=== PATIENT | female | born 2000 ===

== ENCOUNTER 2019-06-08 16:18 | Inpatient (IN) ==
[2019-06-08] MEDS ORDERED: DINOPROSTONE VAG GEL 10 MG SYRINGE VAG ONE (16:53)
[2019-06-08] MEDS ORDERED: ONDANSETRON 4 MG/2 ML VIAL IV PRN (17:29)
[2019-06-08] MEDS ORDERED: MEPERIDINE 50 MG/1 ML VIAL IM PRN (17:29)
[2019-06-08] MEDS ORDERED: BUTORPHANOL 2 MG/ML VIAL IV PRN (17:29)
[2019-06-08] MEDS ORDERED: LACTATED RINGERS 1,000 ML IV SCH (17:30)
[2019-06-08 17:59] LABS: Basophils % 0.2 % (0.0-0.8); Eosinophils # 0.1 10*3/uL (0.0-0.87); Hematocrit 37.5 VOL% (35.7-47.0); Hemoglobin 12.3 GM/DL (12.0-16.0); Immature Granulocytes % 0.8 %; Immature Granulocytes Absolute 0.07 #; Lymphocytes # 1.1 10*3/uL (1.4-4.0); Lymphocytes % 13.2 % (21.3-54.2); Mean Corpuscular HGB Conc 32.8 GM/DL (32-36); Mean Corpuscular Volume 94.7 FL (87-102); Mean Platelet Volume 13.3 FL (9.6-12.0); Monocytes % 7.4 % (1.7-12.7); Neutrophils % 77.4 % (38.7-73.9); Platelet Count 164 T/CUMM (130-400); Red Blood Count 3.96 MC/CUMM (3.8-5.5); White Blood Count 8.4 T/CUMM (4-12)
[2019-06-09] MEDS ORDERED: OXYTOCIN/LR 20 UNIT/1,000 ML BAG IV SCH (01:00)
[2019-06-09] MEDS ORDERED: DINOPROSTONE VAG GEL 10 MG SYRINGE VAG ONE ×2 (08:45→08:52)
[2019-06-09] MEDS ORDERED: ceFAZolin 2,000 MG in PREMIX 1 EACH IV ONE (15:36)
[2019-06-09] MEDS ORDERED: CITRIC ACID/SODIUM CITRATE 30 ML UDCUP PO ONE (15:36)
[2019-06-09] MEDS ORDERED: FAMOTIDINE 20 MG/2 ML VIAL IV ONE (15:36)
[2019-06-09] MEDS ORDERED: OXYTOCIN 10 UNIT/ML VIAL IM ONE (16:16)
[2019-06-09] MEDS ORDERED: OXYTOCIN/LR 30 UNIT/1,000 ML BAG IV ONE (16:16)
[2019-06-09] MEDS ORDERED: MORPHINE 10 MG/10 ML VIAL ONE (17:00)
[2019-06-09] MEDS ORDERED: PHENYLEPHRINE 1 MG/10 ML SYRINGE IV ONE (17:00)
[2019-06-09] MEDS ORDERED: BUPIVACAINE SPINAL 0.75% 2 ML AMP SPINAL ONE (17:00)
[2019-06-09] MEDS ORDERED: fentaNYL 100 MCG/2 ML VIAL ONE (17:00)
[2019-06-09] MEDS ORDERED: KETOROLAC 60 MG/2 ML VIAL IM ONE (17:01)
[2019-06-09] MEDS ORDERED: MAGNESIUM HYDROXIDE SUSP 30 ML UDCUP PO PRN (17:59)
[2019-06-09] MEDS ORDERED: ONDANSETRON 4 MG/2 ML VIAL IV PRN (17:59)
[2019-06-09] MEDS ORDERED: ACETAMINOPHEN 325 MG TABLET PO PRN (17:59)
[2019-06-09] MEDS ORDERED: OXYTOCIN/LR 20 UNIT/1,000 ML BAG IV ONE (17:59)
[2019-06-09] MEDS ORDERED: IBUPROFEN 800 MG TABLET PO PRN (17:59)
[2019-06-09] MEDS ORDERED: RHO(D) IMMUNE GLOBULIN 300 MCG SYRINGE IM ONE (17:59)
[2019-06-09] MEDS ORDERED: LACTATED RINGERS 1,000 ML IV SCH (18:00)
[2019-06-09 18:09] LABS: Cord Arterial Blood HCO3 20.6 MMOL/L
[2019-06-09 18:11] LABS: Cord Venous Blood HCO3 22.1 MMOL/L; Cord Venous Blood PCO2 43.3 MMHG; Cord Venous Blood PO2 33.4
[2019-06-09 18:30] LABS: Apearance,Urine CLEAR (Clear); Bacteria,Urine Occasional /HPF (Few); Bilirubin,Urine Negative (Negative); Blood, Urine Negative (Negative); Glucose,Urine (UA) Negative (Negative); Hyaline Casts,Urine 1 /LPF (0-3); Ketones,Urine 20 mg/dL (Negative); Mucus,Urine Occasional /LPF (Occasional); Nitrite,Urine Negative (Negative); Protein,Urine Negative; RBC,Urine <1 /HPF (0-4); Urine Color Yellow (Yellow); Urine Urobilinogen < 2.0 EU/DL (0.2-1.0); WBC,Urine <1 /HPF (0-6)
[2019-06-09] MEDS ORDERED: hydrOXYzine HCL 25 MG/1 ML VIAL IM PRN (22:44)
[2019-06-09] MEDS ORDERED: HYDROmorphone 2 MG/1 ML VIAL IV PRN (22:44)
[2019-06-09] MEDS ORDERED: diphenhydrAMINE 50 MG/1 ML VIAL IV PRN (22:44)
[2019-06-09] MEDS: DOCUSATE SODIUM 100 MG CAPSULE PO SCH (23:05)
[2019-06-09] MEDS: KETOROLAC 30 MG/1 ML VIAL IV SCH (23:24)
[2019-06-10] MEDS: ceFAZolin 1,000 MG in SYRINGE 1 EACH IV SCH ×2 (02:06→10:40)
[2019-06-10 02:08] LABS: Basophils % 0.2 % (0.0-0.8); Eosinophils % 0.2 % (0.00-10.9); Hematocrit 33.4 VOL% (35.7-47.0); Hemoglobin 10.9 GM/DL (12.0-16.0); Immature Granulocytes % 0.6 %; Immature Granulocytes Absolute 0.08 #; Lymphocytes # 0.9 10*3/uL (1.4-4.0); Lymphocytes % 7.1 % (21.3-54.2); Mean Corpuscular HGB Conc 32.6 GM/DL (32-36); Mean Corpuscular Volume 94.4 FL (87-102); Mean Platelet Volume 12.7 FL (9.6-12.0); Monocytes % 6.7 % (1.7-12.7); Neutrophils % 85.2 % (38.7-73.9); Platelet Count 130 T/CUMM (130-400); Red Blood Count 3.54 MC/CUMM (3.8-5.5); Red Cell Distribution Width 14.7 % (9.3-17.3); White Blood Count 12.8 T/CUMM (4-12)
[2019-06-10] MEDS: KETOROLAC 30 MG/1 ML VIAL IV SCH ×2 (05:17→12:00)
[2019-06-10 09:44] LABS: Basophils % 0.2 % (0.0-0.8); Eosinophils # 0.1 10*3/uL (0.0-0.87); Eosinophils % 0.6 % (0.00-10.9); Hematocrit 31.4 VOL% (35.7-47.0); Hemoglobin 10.5 GM/DL (12.0-16.0); Immature Granulocytes % 0.7 %; Immature Granulocytes Absolute 0.07 #; Lymphocytes # 1.1 10*3/uL (1.4-4.0); Lymphocytes % 11.2 % (21.3-54.2); Mean Corpuscular HGB Conc 33.4 GM/DL (32-36); Mean Corpuscular Volume 93.2 FL (87-102); Mean Platelet Volume 13.2 FL (9.6-12.0); Monocytes % 8.8 % (1.7-12.7); Neutrophils % 78.5 % (38.7-73.9); Platelet Count 128 T/CUMM (130-400); Red Blood Count 3.37 MC/CUMM (3.8-5.5); Red Cell Distribution Width 14.8 % (9.3-17.3); White Blood Count 9.4 T/CUMM (4-12)
[2019-06-10] MEDS: MULTIVITAMIN (PRENATAL) TABLET PO SCH (10:00)
[2019-06-10] MEDS: METOCLOPRAMIDE 10 MG TABLET PO SCH ×3 (10:00→23:34)
[2019-06-10] MEDS: MAGNESIUM HYDROXIDE SUSP 30 ML UDCUP PO SCH (10:43)
[2019-06-10] MEDS: DOCUSATE SODIUM 100 MG CAPSULE PO SCH ×2 (10:43→21:09)
[2019-06-10] MEDS: SIMETHICONE CHEW 80 MG TABLET PO PRN (10:44)
[2019-06-11 07:17] VITALS: BP 124/70
[2019-06-11] MEDS: MULTIVITAMIN (PRENATAL) TABLET PO SCH (08:10)
[2019-06-11] MEDS: MAGNESIUM HYDROXIDE SUSP 30 ML UDCUP PO SCH (08:10)
[2019-06-11] MEDS: DOCUSATE SODIUM 100 MG CAPSULE PO SCH (08:10)
[2019-06-11] MEDS: METOCLOPRAMIDE 10 MG TABLET PO SCH (08:10)
[2019-06-11] MEDS: SIMETHICONE CHEW 80 MG TABLET PO PRN (08:10)
== END 2019-06-11 12:50 | disposition home or self-care (01) | DRG 540 ==
LOC: N.LDOUT 16:18 → N.LD 16:22 → N.OB 06-09 21:42
PROVIDERS: ADMIT Obstetrics & Gynecology; ATTEND Obstetrics & Gynecology
PROC: LDCSECT (ICD-10-PCS; 2019-06-09 17:00)

== ENCOUNTER 2020-08-10 10:25 | Inpatient (IN) ==
[2020-08-10] MEDS ORDERED: FAMOTIDINE 20 MG/2 ML VIAL IV ONE (10:49)
[2020-08-10] MEDS ORDERED: CITRIC ACID/SODIUM CITRATE 30 ML UDCUP PO ONE (10:49)
[2020-08-10] MEDS ORDERED: ceFAZolin 2,000 MG in PREMIX 1 EACH IV ONE (10:49)
[2020-08-10] MEDS ORDERED: LACTATED RINGERS 1,000 ML IV SCH ×2 (11:00→17:30)
[2020-08-10 11:10] LABS: Basophils % 0.3 % (0.0-0.8); Eosinophils # 0.1 10*3/uL (0.0-0.87); Eosinophils % 0.8 % (0.00-10.9); Hematocrit 32.4 VOL% (35.7-47.0); Hemoglobin 10.3 GM/DL (12.0-16.0); Immature Granulocytes Absolute 0.07 #; Lymphocytes # 1.5 10*3/uL (1.4-4.0); Lymphocytes % 20.5 % (21.3-54.2); Mean Corpuscular HGB Conc 31.8 GM/DL (32-36); Mean Corpuscular Volume 85.7 FL (87-102); Mean Platelet Volume 12.7 FL (9.6-12.0); Monocytes % 8.2 % (1.7-12.7); Neutrophils % 69.2 % (38.7-73.9); Platelet Count 189 T/CUMM (130-400); Red Blood Count 3.78 MC/CUMM (3.8-5.5); Red Cell Distribution Width 14.5 % (9.3-17.3); White Blood Count 7.3 T/CUMM (4-12)
[2020-08-10 11:29] LABS: Alanine Aminotransferase 23 U/L (13-56); Albumin 2.7 G/DL (3.4-5.0); Alkaline Phosphatase 199 U/L (45-117); Aspartate Amino Transferase 25 U/L (0-37); Bilirubin,Total < 0.39 MG/DL (0.2-1.0); Blood Urea Nitrogen 7 MG/DL (7-18); Calcium 8.3 MG/DL (8.5-10.1); Carbon Dioxide 19 MMOL/L (21-32); Estimated Glom Filtration Rate 152 ML/MIN; Glucose 94 MG/DL (74-106); Osmolality,Calculated 272.7 MOS/KG (273-304); Potassium 3.9 MMOL/L (3.5-5.1); Sodium 138 MMOL/L (136-145); Total Protein 7.1 G/DL (6.4-8.2)
[2020-08-10] MEDS ORDERED: OXYTOCIN/LR 20 UNIT/1,000 ML BAG IV ONE ×2 (11:51→17:08)
[2020-08-10] MEDS ORDERED: miSOPROStoL 200 MCG TABLET ONE (11:51)
[2020-08-10] MEDS ORDERED: TRANEXAMIC ACID 1,000 MG/10 ML VIAL ONE (11:51)
[2020-08-10] MEDS ORDERED: CARBOPROST TROMETHAMINE 250 MCG/ML AMP IM ONE (11:52)
[2020-08-10] MEDS ORDERED: METHYLERGONOVINE 0.2 MG/1 ML AMP ONE (11:52)
[2020-08-10] MEDS ORDERED: OXYTOCIN/LR 30 UNIT/1,000 ML BAG IV ONE (12:30)
[2020-08-10] MEDS ORDERED: OXYTOCIN 10 UNIT/ML VIAL IM ONE (12:30)
[2020-08-10] MEDS ORDERED: PHENYLEPHRINE 1 MG/10 ML SYRINGE IV ONE (13:40)
[2020-08-10] MEDS ORDERED: BUPIVACAINE SPINAL 0.75% 2 ML AMP SPINAL ONE (13:40)
[2020-08-10] MEDS ORDERED: ONDANSETRON 4 MG/2 ML VIAL ONE (13:40)
[2020-08-10 16:36] LABS: Cord Venous Blood HCO3 20.4 MMOL/L; Cord Venous Blood PCO2 41.6 MMHG; Cord Venous Blood PO2 37.6
[2020-08-10 16:40] LABS: Bacteria,Urine Occasional /HPF (Few); Bilirubin,Urine Negative (Negative); Blood, Urine Negative (Negative); Glucose,Urine (UA) Negative (Negative); Ketones,Urine Negative (Negative); Mucus,Urine Many /LPF (Occasional); Nitrite,Urine Negative (Negative); Protein,Urine 30 MG/DL; Squamous Epithelial Cell,Urine Occasional /HPF (0-10); Urine Appearance CLEAR (Clear); Urine Color Yellow (Yellow); Urine Specific Gravity 1.025 (1.001-1.035)
[2020-08-10] MEDS ORDERED: IBUPROFEN 800 MG TABLET PO PRN (17:08)
[2020-08-10] MEDS ORDERED: RHO(D) IMMUNE GLOBULIN 300 MCG SYRINGE IM ONE (17:08)
[2020-08-10] MEDS ORDERED: ACETAMINOPHEN 325 MG TABLET PO PRN (17:08)
[2020-08-10] MEDS ORDERED: SIMETHICONE CHEW 80 MG TABLET PO PRN (17:08)
[2020-08-10] MEDS ORDERED: ONDANSETRON 4 MG/2 ML VIAL IV PRN (17:08)
[2020-08-10] MEDS: DOCUSATE SODIUM 100 MG CAPSULE PO SCH (20:42)
[2020-08-11] MEDS: ceFAZolin 1,000 MG in SYRINGE 1 EACH IV SCH ×2 (01:47→08:45)
[2020-08-11] MEDS ORDERED: OXYTOCIN/LR 20 UNIT/1,000 ML BAG IV ONE (02:00)
[2020-08-11 05:31] LABS: Basophils % 0.2 % (0.0-0.8); Eosinophils # 0.1 10*3/uL (0.0-0.87); Eosinophils % 0.6 % (0.00-10.9); Hematocrit 26.2 VOL% (35.7-47.0); Immature Granulocytes % 0.6 %; Immature Granulocytes Absolute 0.05 #; Lymphocytes # 1.2 10*3/uL (1.4-4.0); Lymphocytes % 14.3 % (21.3-54.2); Mean Corpuscular HGB Conc 31.7 GM/DL (32-36); Mean Corpuscular Volume 86.2 FL (87-102); Mean Platelet Volume 12.8 FL (9.6-12.0); Monocytes % 5.6 % (1.7-12.7); Neutrophils % 78.7 % (38.7-73.9); Platelet Count 154 T/CUMM (130-400); Red Blood Count 3.04 MC/CUMM (3.8-5.5); Red Cell Distribution Width 14.4 % (9.3-17.3); White Blood Count 8.4 T/CUMM (4-12)
[2020-08-11 05:34] LABS: Hemoglobin 8.3 GM/DL (12.0-16.0)
[2020-08-11 06:26] LABS: Hypochromasia Slight; Platelet Estimate Normal
[2020-08-11] MEDS: DOCUSATE SODIUM 100 MG CAPSULE PO SCH ×2 (08:35→20:26)
[2020-08-11] MEDS: MAGNESIUM HYDROXIDE SUSP 30 ML UDCUP PO PRN ×2 (08:35→20:26)
[2020-08-11] MEDS: FERROUS SULFATE 325 MG TABLET PO SCH ×2 (08:35→20:26)
[2020-08-11] MEDS: MULTIVITAMIN (PRENATAL) TABLET PO SCH (08:35)
[2020-08-11] MEDS: METOCLOPRAMIDE 10 MG TABLET PO SCH ×3 (08:44→23:40)
[2020-08-12] MEDS: MULTIVITAMIN (PRENATAL) TABLET PO SCH ×2 (08:52→08:53)
[2020-08-12] MEDS: DOCUSATE SODIUM 100 MG CAPSULE PO SCH (08:53)
[2020-08-12] MEDS: FERROUS SULFATE 325 MG TABLET PO SCH (08:53)
[2020-08-12 11:15] VITALS: BP 132/72
== END 2020-08-12 12:25 | disposition home or self-care (01) | DRG 540 ==
LOC: N.LD 10:25 → N.OB 21:30
PROVIDERS: ADMIT Obstetrics & Gynecology; ATTEND Obstetrics & Gynecology
PROC: LDCSECT (ICD-10-PCS; 2020-08-10 13:15)

== ENCOUNTER 2022-04-24 10:15 | Inpatient (IN) ==
[2022-04-24] MEDS ORDERED: TRANEXAMIC ACID 1,000 MG in SODIUM CHLORIDE 0.9% 100 ML IV PRN (10:25)
[2022-04-24] MEDS ORDERED: ceFAZolin 2,000 MG/50 ML DUPLEX IV ONE (10:25)
[2022-04-24] MEDS ORDERED: OXYTOCIN/LR 20 UNIT/1,000 ML BAG IV ONE ×2 (10:25→14:54)
[2022-04-24] MEDS ORDERED: FAMOTIDINE 20 MG/2 ML VIAL IV ONE (10:25)
[2022-04-24] MEDS ORDERED: METHYLERGONOVINE 0.2 MG/1 ML AMP IM PRN (10:25)
[2022-04-24] MEDS ORDERED: CARBOPROST TROMETHAMINE 250 MCG/ML AMP IM PRN (10:25)
[2022-04-24] MEDS ORDERED: miSOPROStoL 200 MCG TABLET RECTAL PRN (10:25)
[2022-04-24] MEDS ORDERED: CITRIC ACID/SODIUM CITRATE 30 ML UDCUP PO ONE (10:25)
[2022-04-24] MEDS ORDERED: LACTATED RINGERS 1,000 ML IV SCH ×2 (10:30→15:00)
[2022-04-24 11:03] LABS: Basophils % 0.4 % (0.0-0.8); Eosinophils # 0.1 10*3/uL (0.0-0.87); Eosinophils % 1.1 % (0.00-10.9); Hematocrit 34.6 VOL% (35.7-47.0); Hemoglobin 11.3 GM/DL (12.0-16.0); Immature Granulocytes % 0.7 %; Immature Granulocytes Absolute 0.05 #; Lymphocytes # 1.6 10*3/uL (1.4-4.0); Lymphocytes % 22.3 % (21.3-54.2); Mean Corpuscular HGB Conc 32.7 GM/DL (32-36); Mean Corpuscular Volume 86.1 FL (87-102); Mean Platelet Volume 13.4 FL (9.6-12.0); Monocytes # 0.5 10*3/uL (0.11-0.8); Monocytes % 6.7 % (1.7-12.7); Neutrophils % 68.8 % (38.7-73.9); Platelet Count 191 T/CUMM (130-400); Red Blood Count 4.02 MC/CUMM (3.8-5.5); Red Cell Distribution Width 15.7 % (9.3-17.3)
[2022-04-24 11:31] LABS: Alanine Aminotransferase 22 U/L (13-56); Albumin 2.5 G/DL (3.4-5.0); Alkaline Phosphatase 265 U/L (45-117); Aspartate Amino Transferase 15 U/L (0-37); Bilirubin,Total < 0.39 MG/DL (0.20-1.00); Blood Urea Nitrogen 6 MG/DL (7-18); Calcium 8.6 MG/DL (8.5-10.1); Carbon Dioxide 18 MMOL/L (21-32); Chloride 113 MMOL/L (98-107); Glucose 103 MG/DL (74-106); Osmolality,Calculated 276.4 MOS/KG (273-304); Potassium 3.9 MMOL/L (3.5-5.1); Sodium 140 MMOL/L (136-145); Total Protein 7.1 G/DL (6.4-8.2)
[2022-04-24] MEDS ORDERED: OXYTOCIN 10 UNIT/ML VIAL IM ONE (13:00)
[2022-04-24] MEDS ORDERED: OXYTOCIN/LR 30 UNIT/1,000 ML BAG IV ONE ×2 (13:00→14:48)
[2022-04-24] MEDS ORDERED: buprenorphine HCL 0.3 MG/ML VIAL ONE (13:18)
[2022-04-24] MEDS ORDERED: ONDANSETRON 4 MG/2 ML VIAL ONE (13:18)
[2022-04-24 14:21] LABS: Cord Arterial Blood HCO3 16.8 MMOL/L
[2022-04-24 14:23] LABS: Bilirubin,Urine Negative (Negative); Blood, Urine Trace mg/dL (Negative); Glucose,Urine (UA) Negative (Negative); Ketones,Urine Negative (Negative); Mucus,Urine Occasional /LPF (Occasional); Nitrite,Urine Negative (Negative); Protein,Urine Negative (Negative); Squamous Epithelial Cell,Urine Occasional /HPF (0-10); Urine Appearance Clear (Clear); Urine Color Yellow (Yellow); Urine Urobilinogen 0.2 eU/dL (<2.0)
[2022-04-24 14:24] LABS: RBC,Urine 0-3 /HPF (0-4)
[2022-04-24 14:24] LABS: Cord Venous Blood HCO3 18.9 MMOL/L; Cord Venous Blood PCO2 47.4 MMHG; Cord Venous Blood PO2 32.5
[2022-04-24] MEDS ORDERED: RHO(D) IMMUNE GLOBULIN 300 MCG SYRINGE IM ONE (14:54)
[2022-04-24] MEDS ORDERED: MAGNESIUM HYDROXIDE SUSP 30 ML UDCUP PO PRN (14:54)
[2022-04-24] MEDS ORDERED: ONDANSETRON 4 MG/2 ML VIAL IV PRN (14:54)
[2022-04-24] MEDS ORDERED: ACETAMINOPHEN 325 MG TABLET PO PRN (14:54)
[2022-04-24] MEDS: DOCUSATE SODIUM 100 MG CAPSULE PO SCH (21:02)
[2022-04-24] MEDS: SIMETHICONE CHEW 80 MG TABLET PO PRN (21:02)
[2022-04-24 23:37] LABS: Basophils % 0.2 % (0.0-0.8); Eosinophils % 0.4 % (0.00-10.9); Hematocrit 31.1 VOL% (35.7-47.0); Hemoglobin 9.6 GM/DL (12.0-16.0); Immature Granulocytes % 0.4 %; Immature Granulocytes Absolute 0.04 #; Lymphocytes % 9.7 % (21.3-54.2); Mean Corpuscular HGB Conc 30.9 GM/DL (32-36); Mean Corpuscular Volume 86.4 FL (87-102); Monocytes # 0.6 10*3/uL (0.11-0.8); Monocytes % 5.4 % (1.7-12.7); Neutrophils % 83.9 % (38.7-73.9); Platelet Count 158 T/CUMM (130-400); Red Cell Distribution Width 15.9 % (9.3-17.3); White Blood Count 10.4 T/CUMM (4-12)
[2022-04-25] MEDS ORDERED: OXYTOCIN/LR 30 UNIT/1,000 ML BAG IV ONE (00:30)
[2022-04-25 06:25] LABS: Basophils % 0.3 % (0.0-0.8); Eosinophils # 0.1 10*3/uL (0.0-0.87); Eosinophils % 0.8 % (0.00-10.9); Hematocrit 27.7 VOL% (35.7-47.0); Immature Granulocytes % 0.4 %; Immature Granulocytes Absolute 0.03 #; Lymphocytes # 1.4 10*3/uL (1.4-4.0); Lymphocytes % 18.1 % (21.3-54.2); Mean Corpuscular HGB Conc 32.5 GM/DL (32-36); Mean Corpuscular Volume 86.3 FL (87-102); Mean Platelet Volume 12.9 FL (9.6-12.0); Monocytes # 0.5 10*3/uL (0.11-0.8); Monocytes % 5.9 % (1.7-12.7); Neutrophils % 74.5 % (38.7-73.9); Platelet Count 134 T/CUMM (130-400); Red Blood Count 3.21 MC/CUMM (3.8-5.5); Red Cell Distribution Width 15.8 % (9.3-17.3); White Blood Count 7.9 T/CUMM (4-12)
[2022-04-25] MEDS: DOCUSATE SODIUM 100 MG CAPSULE PO SCH ×2 (09:00→21:12)
[2022-04-25] MEDS: IBUPROFEN 800 MG TABLET PO PRN (15:38)
[2022-04-25] MEDS: MULTIVITAMIN (PRENATAL) TABLET PO SCH (16:44)
[2022-04-25] MEDS: SIMETHICONE CHEW 80 MG TABLET PO PRN (21:12)
[2022-04-26 07:21] VITALS: BP 138/73
[2022-04-26] MEDS: MULTIVITAMIN (PRENATAL) TABLET PO SCH (08:09)
[2022-04-26] MEDS: DOCUSATE SODIUM 100 MG CAPSULE PO SCH (08:10)
[2022-04-26] MEDS: IBUPROFEN 800 MG TABLET PO PRN (08:12)
== END 2022-04-26 12:45 | disposition home or self-care (01) | DRG 540 ==
LOC: N.LD 10:15 → N.OB 17:24
PROVIDERS: ADMIT Obstetrics & Gynecology; ATTEND Obstetrics & Gynecology
PROC: LDCSECT (ICD-10-PCS; 2022-04-24 13:15)